=== PATIENT | female | born 1965 | race Caucasian/White ===

== ENCOUNTER 2020-08-22 09:04 | Outpatient (CLI) | payer OTHER, SELFPAY ==
[2020-08-22 09:25] LABS: Add Urine Microscopic? NO
[2020-08-22 09:30] LABS: Basophils # 0.1 10^3/uL (0.0-0.1); Basophils % 0.8 %; Eosinophils # 0.2 10^3/uL (0.0-0.8); Eosinophils % 1.9 %; Hematocrit 43.7 % (37.0-47.0); Hemoglobin 14.4 g/dL (11.5-15.3); Lymphocytes # 2.8 10^3/uL (0.8-4.8); Lymphocytes % 26.8 %; Mean Corpuscular Hemoglobin 31.2 pg (28.0-34.0); Mean Corpuscular Volume 94.6 fL (81-99); Mean Platelet Volume 9.7 fL (7.4-10.4); Monocytes # 0.7 10^3/uL (0.2-0.9); Monocytes % 6.3 %; Neutrophils # 6.76 10^3/uL (1.8-7.7); Neutrophils % 63.9 %; Nucleated Red Blood Cells % 0 %; Platelet Count 375 10^3/cmm (130-400); Red Blood Count 4.62 10^6/uL (4.1-5.3); Red Cell Distribution Width 12.8 % (12.1-15.1); White Blood Count 10.6 10^3/uL (4.0-10.0)
[2020-08-22 09:31] LABS: Bilirubin Urine Neg (Negative); Blood Urine Neg (Negative); Glucose Urine UA Norm (Normal); Ketones Urine Negative (Negative); Leukocyte Esterase Urine Negative (Negative); Nitrate Urine Negative (Negative); Protein Urine Neg (Negative); Specific Gravity, Urine 1.005 (1.005-1.030); Urine Appearance Clear (CLEAR); Urine Color Straw (Yellow); Urobilinogen Urine Norm (Negative); pH Urine 7 (5-7)
[2020-08-22 09:54] LABS: Alanine Aminotransferase 13 U/L (0-33); Albumin Level 4.1 g/dL (3.5-5.2); Alkaline Phosphatase 103 IU/L (35-105); Anion Gap 14.3 (5-19); Aspartate Amino Transferase 15 U/L (0-32); Blood Urea Nitrogen 11 mg/dL (6-20); Calcium 9.1 mg/dL (8.5-10.5); Carbon Dioxide 25 mmol/L (22-29); Chloride 107 mmol/L (98-107); Glomerular Filtration Rate 86.6 mL/min (90-130); Glucose 90 mg/dL (65-115); Lipase 89 U/L (13-60); Osmolality Calculated 293 mOsm/kg (285-295); Potassium 4.3 mmol/L (3.5-5.1); Sodium 142 mmol/L (136-145); Total Bilirubin 0.2 mg/dL (0.15-1.2); Total Protein 7.1 g/dL (6.6-8.7)
== END 2020-08-22 09:05 | disposition home or self-care (01) ==
PROVIDERS: Visit Provider Family Medicine
DX: R10.9 Unspecified abdominal pain (principal)
CPT/HCPCS: 36415; 80053; 81003; 83690; 85025

== ENCOUNTER 2021-02-02 09:53 | Emergency (ER) | payer OTHER, SELFPAY ==
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
[2021-02-02 10:04] VITALS: BMI 28.3
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
[2021-02-02 10:10] VITALS: BP 157/101; PULSE 95; RESP 18; TEMP 36.8; O2SAT 96
[2021-02-02 10:19] VITALS: O2SAT 96
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
[2021-02-02 12:12] LABS: Urine Color Yellow (Yellow)
[2021-02-02 12:13] LABS: Add Urine Microscopic? YES; Bacteria Urine TRACE /hpf; Bilirubin Urine Neg (Negative); Blood Urine 2+ (Negative); Glucose Urine UA Norm (Normal); Ketones Urine Negative (Negative); Leukocyte Esterase Urine Negative (Negative); Nitrate Urine Negative (Negative); Protein Urine Neg (Negative); RBC Urine 0-4 /hpf (0-2); Urine Appearance Clear (CLEAR); Urobilinogen Urine Norm (Negative); pH Urine 5 (5-7)
--- NOTE | 2021-02-02 14:54 | DCPLANNER ---
accounting systems manager had message to schedule a follow up appointment for patient with an outpatient MRI. Order was faxed to centralized scheduling, and an MRI is scheduled for patient for Tuesday, January at 8:45 at [facility]. Patient is aware of appointment.
--- NOTE | 2021-02-12 08:35 | DCPLANNER ---
Patient did attend appointment scheduled for MRI.
== END 2021-02-02 11:55 | disposition home or self-care (01) ==
PROVIDERS: Emergency Provider Family Medicine
DX: S13.4XXA Sprain of ligaments of cervical spine, initial encounter (principal); M54.6 Pain in thoracic spine; V89.2XXA Person injured in unspecified motor-vehicle accident, traffic, initial encounter
CPT/HCPCS: 72125; 72128; 81001; 99283

== ENCOUNTER 2021-02-03 08:37 | Outpatient (CLI) | payer OTHER, SELFPAY ==
--- NOTE | 2021-02-03 08:45 | MR_ITS ---
WS: [id number] MRI THORACIC SPINE WITHOUT CONTRAST TECHNIQUE: Sagittal T1, T2 and STIR imaging. Axial T2 imaging. Noncontrast imaging obtained. CLINICAL INFORMATION: T2-T3 COMPRESSION FX COMPARISON: CT February 02, 2021 FINDINGS: Mild thoracic curve. Mild thoracic kyphosis. Minimal anterior wedging involving the superior endplate s at T2 and T3. Tiny amount of trace edema in the superior endplates at T2-3 suspicious for a tiny am ount of acute compression. No retropulsion. No significant loss vertebral body height. Spinal canal is patent. Cord signal is normal. No significant central canal stenosis. Tiny central ri ght pericentral disc protrusion T11-T12 with slight effacement of ventral thecal sac. Mild facet arth ropathy. Foramen are patent. Mild to moderate facet arthropathy lower thoracic spine. Normal caliber thoracic aorta. MR/MR thoracic spin wo con* [id number] IMPRESSION: 1. Mild thoracic curve. Mild thoracic kyphosis. 2. Trace edema with anterior wedging at T2-3 consistent with a tiny amount of acute compression. No retropulsion. 3. Cord signal is normal. 4. Tiny central and right pericentral protrusion T11-T12 with slight effacemen t of the ventral thecal sac.
== END 2021-02-03 08:38 | disposition home or self-care (01) ==
PROVIDERS: Visit Provider Family Medicine
DX: S22.028A Other fracture of second thoracic vertebra, initial encounter for closed fracture (principal); S22.038A Other fracture of third thoracic vertebra, initial encounter for closed fracture; X58.XXXA Exposure to other specified factors, initial encounter; M40.294 Other kyphosis, thoracic region; M51.24 Other intervertebral disc displacement, thoracic region
CPT/HCPCS: 72146

== ENCOUNTER 2021-02-06 08:00 | Outpatient (CLI) | payer OTHER, SELFPAY | END 2021-02-06 08:01 | disposition home or self-care (01) | LOC: SPT 03-10 10:46 | PROVIDERS: PCP Nurse Practitioner Family; Visit Provider Nurse Practitioner Family | DX: Z46.89 Encounter for fitting and adjustment of other specified devices (principal); S22.030D Wedge compression fracture of third thoracic vertebra, subsequent encounter for fracture with routine healing; S22.020D Wedge compression fracture of second thoracic vertebra, subsequent encounter for fracture with routine healing; X58.XXXD Exposure to other specified factors, subsequent encounter | CPT/HCPCS: L0456 ==

== ENCOUNTER 2021-03-05 15:19 | Outpatient (CLI) | payer OTHER, SELFPAY ==
--- NOTE | 2021-03-05 15:30 | MM_ITS ---
WS: [id number] BILATERAL SCREENING DIGITAL MAMMOGRAM WITH CAD HISTORY: Screening COMPARISON: None available. Bilateral CC and MLO views submitted. Computer aided detection analyzed. Breast composition: The breasts are heterogeneously dense, which may obscure small masses. No suspici ous masses, microcalcifications or architectural distortion. Benign calcification LEFT breast. MM/[place] [id number] IMPRESSION: BI-RADS: 2-Benign FOLLOW UP: 1 Year Follow-up
== END 2021-03-05 15:20 | disposition home or self-care (01) ==
LOC: RADSHAW 15:24
PROVIDERS: PCP Nurse Practitioner Family; Visit Provider Nurse Practitioner Family
DX: Z12.31 Encounter for screening mammogram for malignant neoplasm of breast (principal)
CPT/HCPCS: 77067

== ENCOUNTER 2021-03-11 13:32 | Outpatient (CLI) | payer OTHER, SELFPAY ==
[2021-03-12 15:36] LABS: Coronavirus Test Green County Not Detected
== END 2021-03-11 13:33 | disposition home or self-care (01) ==
LOC: LAB 13:33
PROVIDERS: PCP Nurse Practitioner Family; Visit Provider Nurse Practitioner Family
DX: Z20.822 Contact with and (suspected) exposure to COVID-19 (principal)
CPT/HCPCS: 87635

== ENCOUNTER 2021-03-16 08:00 | Day surgery (SDC) | payer OTHER, SELFPAY ==
[2021-03-11 12:39] VITALS: BMI 28.7
[2021-03-16 08:18] VITALS: BP 136/76; PULSE 88; RESP 16; TEMP 36.9; O2SAT 98
[2021-03-16] MEDS: sodium chloride 0.9% 1,000 ML 30 ML IV (08:25)
--- NOTE | 2021-03-16 08:57 | W.PM.OPSFHP ---
Same Day Surgery H&P Indication for Procedure/HPI DATE OF PROCEDURE: March 16, 2021 CHIEF COMPLAINT/INDICATIONFOR SURGICAL PROCEDURE: Screening PREOP DIAGNOSIS: Screening PLANNED PROCEDRUE: Operation Date: 03/16/21 09:00 Proposed Procedures p Colonoscopy G0121 Z12.11(Not Applicable) - Erasto Bethea MD Medications/Allergies* Allergies/Adverse Reactions Allergy/AdvReac Type Severity Reaction Status Date / Time latex Allergy ALGY-Anaphy Verified 03/16/21 08:38 laxis Current Medications: Generic Name Dose Route Start Last Admin Trade Name Freq PRN Reason Stop Dose Admin Sodium Chloride 1,000 mls @ 30 mls/hr 03/16/21 08:15 03/16/21 08:25 Sodium Chloride 0.9% IV 03/17/21 08:14 30 mls/hr .Q24H NATE Administration Pertinent History/Comorbid Conditions* Medical History (Updated 02/10/21 @ 00:01 by ) Cervical vertebral fusion c3-c7 Surgical History (Updated 02/02/21 @ 10:44 by Adam De La Rosa DO) H/O neck surgery Pertinent Exam Findings alert, oriented x 3, clear to auscultation bilaterally, regular rate & rhythm, operative site marked and procedure specific exam findings Recommendations Surgery/Procedure today Coding Level of Care Code 

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
[2021-03-16 09:29] VITALS: BP 115/73; PULSE 89; RESP 16; TEMP 36.1; O2SAT 95
--- NOTE | 2021-03-16 09:35 | ANE.PACU2 ---
Inpatient post-anesthesia follow up: Airway intact: Yes Vital signs: Temperature 97 F Pulse Rate 89 Respiratory Rate 16 Blood Pressure 115/73 Pulse Oximetry 95 Oxygen Delivery Me thod Nasal Cannula Oxygen Flow Rate 2 Fraction of Inspir ed Oxygen Hydration adequate: Yes Nausea and vomiting: No Pain level: 1 Mental status: Baseline
[2021-03-16 09:48] VITALS: BP 119/85; PULSE 80; RESP 16; O2SAT 98
--- NOTE | 2021-03-16 15:55 | ANE.PACU2 ---
Inpatient post-anesthesia follow up: Airway intact: Yes Vital signs: Temperature 97 F Pulse Rate 80 Respiratory Rate 16 Blood Pressure 119/85 Pulse Oximetry 98 Oxygen Delivery Me thod Room Air Oxygen Flow Rate 2 Fraction of Inspir ed Oxygen Hydration adequate: Yes Nausea and vomiting: No Pain level: 2 Mental status: Baseline
== END 2021-03-16 09:56 | disposition home or self-care (01) ==
PROVIDERS: PCP Nurse Practitioner Family; Visit Provider Internal Medicine
PROC: 0DJD8ZZ Inspection of Lower Intestinal Tract, Via Natural or Artificial Opening Endoscopic (ICD-10-PCS; CPT 45378; principal; 2021-03-16 09:00)
DX: Z12.11 Encounter for screening for malignant neoplasm of colon (principal); Z98.1 Arthrodesis status
CPT/HCPCS: 45378; 96360; J2704; J7030

== ENCOUNTER → 2021-05-15 10:26 | Outpatient (BNVA) | payer OTHER, SELFPAY | PROVIDERS: PCP Nurse Practitioner Family; Visit Provider Nurse Practitioner Family | DX: R42 Dizziness and giddiness (principal); R53.83 Other fatigue | CPT/HCPCS: 80053; 82607; 83036; 84443 ==